=== PATIENT | male | born 1970 | race Two or more races ===

== ENCOUNTER 2022-11-10 15:17 | Outpatient (REF) | payer OTHER, SELFPAY | END 2022-11-10 15:18 | disposition home or self-care (01) | LOC: HO.XRAY 15:17 | PROVIDERS: PCP Internal Medicine; Visit Provider Internal Medicine | DX: M54.2 Cervicalgia (principal); M54.9 Dorsalgia, unspecified; Z96.89 Presence of other specified functional implants; Z98.1 Arthrodesis status; Z79.899 Other long term (current) drug therapy | CPT/HCPCS: 99202 ==